=== PATIENT | male | born 1930 | race Caucasian/White ===

== ENCOUNTER → 2017-02-16 | Outpatient (CLI) | payer OTHER | LOC: BHFA 13:00 | PROVIDERS: ATTEND Internal Medicine Cardiovascular Disease | DX: I25.10 Atherosclerotic heart disease of native coronary artery without angina pectoris (principal); E78.5 Hyperlipidemia, unspecified; I10 Essential (primary) hypertension | CPT/HCPCS: 86141-90 ==

== ENCOUNTER → 2017-02-25 | Outpatient (CLI) | payer OTHER | LOC: BHFA 14:00 | PROVIDERS: ATTEND Internal Medicine Cardiovascular Disease | DX: R06.00 Dyspnea, unspecified (principal) ==

== ENCOUNTER 2018-03-20 16:43 | Inpatient (IN) | payer OTHER ==
[2018-03-20] MEDS ORDERED: IPRATROPIUM/ALBUTEROL 3 ML DEYVIAL IH ONE (17:14)
[2018-03-20] MEDS ORDERED: NS 1,000 ML IV ONE (17:14)
--- NOTE | 2018-03-20 17:17 | EDPHY ---
H & P Time Seen by Provider: 03/20/18 17:02 HPI/ROS: CHIEF COMPLAINT: Cough and shortness of breath HISTORY OF PRESENT ILLNESS: Patient is been in [place] for the last 3 weeks visiting [place] and [place] and [place] and other countries. He started getting sick while he was there and he has a long history of asthma. He got a shot of cortisone [place] and some oral antibiotics there, Azithromycin. He presents now with worsening cough with yellow-green sputum which is associated with severe shortness of breath and some her bilateral chest pain only with his cough. Worse with exertion. REVIEW OF SYSTEMS: Eye: no change in vision ENT: no sore throat Cardiac: No syncope Pulmonary: HPI Abdomen: no vomiting, diarrhea, abdominal pain Musculoskeletal: No leg swelling Skin: no rash Neuro: no headache Constitutional: no fever : no urinary symptoms A comprehensive 10 point review of systems is otherwise negative aside from elements mentioned in the history of present illness. PAST MEDICAL HISTORY: Includes hypertension, asthma treated at [facility]. Pacemaker. Social history: Nonsmoker, travel as above. He got sick while he was traveling. General Appearance: Alert and conversant, cooperative. Eyes: No scleral icterus. ENT, Mouth: Normal mucous membranes. Respiratory: Decreased breath sounds bilaterally. Patient is a little bit tachypneic. Cardiovascular: Regular rate and rhythm. Gastrointestinal: Abdomen is soft and non tender. Neurological: Alert, face symmetric, normal motor and sensory in extremities. Skin: Warm and dry, no rashes. Musculoskeletal: No calf tenderness. Psychiatric: Not agitated. Emergency Department course/MDM: Patient's temperature is 38.2 degrees taken by myself and his heart rate is 98. He has SIRS criteria and is hypoxic with saturation of 90%. Plan for lactate, blood cultures, respiratory panel and chest x-ray, IV antibiotics and admission for pneumonia. Levaquin 750 as he has recently been on a macrolide. IV normal saline hydration. Does not have evidence of severe sepsis or septic shock, although he does have SIRS criteria. Smoking Status: Former smoker Constitutional: Initial Vital Signs Temperature (C) 37.8 C 03/20/18 16:52 Heart Rate 98 03/20/18 16:52 Respiratory Rate 20 03/20/18 16:52 Blood Pressure 129/116 H 03/20/18 16:52 O2 Sat (%) 90 L 03/20/18 16:52 O2 Delivery Mode Room Air Allergies/Adverse Reactions: Sulfa (Sulfonamide Antibiotics) Allergy (Intermediate, Verified 03/20/18 16:51) LOW GRADE FEVER Home Medications: Medication Instructions Recorded Ascorbic Acid [Vitamin C 500 mg 1,000 mg PO Q48H 11/27/13 (*)] Beta-Carotene(A) W-C & E/Min 1 tab PO Q48H 11/27/13 [Ocuvite] Fluticasone/Salmeter 500/50Mcg 1 puffs IH BID #0 11/27/13 [Advair 500/50 (*)] Glucosamine Sulfate [Glucosamine 1,000 mg PO DAILY #0 12/15/14 Sulfate 500 MG (*)] Atorvastatin Calcium [Lipitor 20 20 mg PO DAILY #30 tab 12/17/14 mg (*)] Lisinopril [Zestril 5 mg (*)] 5 mg PO DAILY #30 tab 12/17/14 Aspirin EC [Aspirin EC 81 mg (*)] 81 mg PO DAILY 01/07/15 Ibuprofen [Motrin (*)] 400 mg PO Q6 PRN #0 tab 01/11/15 Albuterol [Proventil Inhaler HFA 2 puffs IH Q6HRS PRN 03/20/18 (*)] Medical Decision Making - Diagnostics Imaging Results: Imaging Impressions Chest X-Ray 03/20/18 17:14 Impression: 1. Bibasilar airspace consolidation, more likely pneumonia than atelectasis. 2. Nodular airspace consolidation versus developing discrete left lung nodule. Recommend follow-up chest radiograph in 4 to 6 weeks to assure resolution. Chest x-ray personally interpreted shows bilateral pulmonary infiltrates Imaging: I viewed and interpreted images myself Differential Diagnosis: Differential diagnosis considered for shortness of breath including but not limited to pulmonary infectious process, COPD, asthma, pulmonary embolus and congestive heart failure. Consult/Admit Bed Type: [place] [id number] - Data Points Laboratory Results: Laboratory Results 03/20/18 17:26 03/20/18 17:26 03/20/18 03/20/18 03/20/18 17:26 17:26 17:26 WBC 12.20 10^3/uL H 10^3/uL (3.80-9.50) RBC 3.90 10^6/uL L 10^6/uL (4.40-6.38) Hgb 12.2 g/dL L g/dL (13.7-17.5) Hct 36.9 % L % (40.0-51.0) MCV 94.6 fL fL (81.5-99.8) MCH 31.3 pg pg (27.9-34.1) MCHC 33.1 g/dL g/dL (32.4-36.7) RDW 15.0 % % (11.5-15.2) Plt Count 239 10^3/uL 10^3/uL (150-400) MPV 9.6 fL fL (8.7-11.7) Neut % (Auto) Not Reported Lymph % (Auto) Not Reported [place] % (Auto) Not Reported Eos % (Auto) Not Reported Baso % (Auto) Not Reported Nucleat RBC Rel Count Not Reported Absolute Neuts (auto) Not Reported Absolute Lymphs (auto) Not Reported Absolute Monos (auto) Not Reported Absolute Eos (auto) Not Reported Absolute Basos (auto) Not Reported Absolute Nucleated RBC Not Reported Immature Gran % Not Reported Seg Neutrophils % 63.3 % % Band Neutrophils % 4.1 % % Lymphocytes % 13.3 % % Monocytes % 8.1 % % Eosinophils % 0 % % Basophils % 0 % % Metamyelocytes % 4.1 % % Myelocytes % 6.1 % % Promyelocytes % 1.0 % % Blast Cells % 0 % % Immature Gran # Not Reported Absolute Seg Neuts 7.72 10^/uL H 10^/uL (1.70-6.50) Absolute Band Neuts 0.50 10^3/uL 10^3/uL (0.00-0.70) Absolute Lymphocytes 1.62 10^3/uL 10^3/uL (1.00-3.00) Absolute Monocytes 0.99 10^3/uL H 10^3/uL (0.30-0.80) Absolute Eosinophils 0.00 10^3/uL L 10^3/uL (0.03-0.40) Absolute Basophils 0.00 10^3/uL L 10^3/uL (0.02-0.10) Absolute Metamyelocyte 0.50 10^3/mL H 10^3/mL (0.00-0.00) Absolute Myelocytes 0.74 10^3/mL H 10^3/mL (0.00-0.00) Absolute Promyelocytes 0.12 10^3/uL H 10^3/uL (0.00-0.00) Absolute Plasma Cells 0.00 10^3/uL 10^3/uL (0.00-0.00) Absolute Blast Cells 0.00 10^3/uL 10^3/uL (0.00-0.00) Plasma Cells % 0 % % Platelet Estimate ADEQUATE (ADEQ) Giant Platelets PRESENT H Acanthocytes (Spur) 1+ H Keratocytes 1+ H Smear Review By Pending PT 15.2 SEC H SEC (12.0-15.0) INR 1.18 H (0.83-1.16) APTT 32.0 SEC SEC (23.0-38.0) VBG Lactic Acid Sodium 136 mEq/L mEq/L (135-145) Potassium 4.3 mEq/L mEq/L (3.3-5.0) Chloride 102 mEq/L mEq/L (97-110) Carbon Dioxide 22 mEq/l mEq/l (22-31) Anion Gap 12 mEq/L mEq/L (8-16) BUN 24 mg/dL H mg/dL (7-23) Creatinine 1.1 mg/dL mg/dL (0.7-1.3) Estimated GFR > 60 Glucose 98 mg/dL mg/dL (70-100) Calcium 8.4 mg/dL L mg/dL (8.5-10.4) Total Bilirubin 0.6 mg/dL mg/dL (0.1-1.4) 03/20/18 17:26 WBC RBC Hgb Hct MCV MCH MCHC RDW Plt Count MPV Neut % (Auto) Lymph % (Auto) [place] % (Auto) Eos % (Auto) Baso % (Auto) Nucleat RBC Rel Count Absolute Neuts (auto) Absolute Lymphs (auto) Absolute Monos (auto) Absolute Eos (auto) Absolute Basos (auto) Absolute Nucleated RBC Immature Gran % Seg Neutrophils % Band Neutrophils % Lymphocytes % Monocytes % Eosinophils % Basophils % Metamyelocytes % Myelocytes % Promyelocytes % Blast Cells % Immature Gran # Absolute Seg Neuts Absolute Band Neuts Absolute Lymphocytes Absolute Monocytes Absolute Eosinophils Absolute Basophils Absolute Metamyelocyte Absolute Myelocytes Absolute Promyelocytes Absolute Plasma Cells Absolute Blast Cells Plasma Cells % Platelet Estimate Giant Platelets Acanthocytes (Spur) Keratocytes Smear Review By PT INR APTT VBG Lactic Acid 0.8 mmol/L mmol/L (0.7-2.1) Sodium Potassium Chloride Carbon Dioxide Anion Gap BUN Creatinine Estimated GFR Glucose Calcium Total Bilirubin Microbiology Results: MICROBIOLOGY 03/20/18 17:45 Nasal, Sinus - Swab Respiratory Panel (PCR) - Final Human Rhinovirus/Enterovirus Medications Given: Discontinued Medications Albuterol/Ipratropium (Duoneb) 3 ml IH EDNOW ONE Stop: 03/20/18 17:15 Last Admin: 03/20/18 17:43 Dose: 3 ml Sodium Chloride (Ns) 1,000 mls @ 0 mls/hr IV ONCE ONE; Wide Open PRN Reason: Protocol Stop: 03/20/18 17:15 Last Admin: 03/20/18 17:36 Dose: 1,000 mls Levofloxacin/Dextrose (Levaquin 750 Mg (Premix)) 150 mls @ 100 mls/hr IV EDNOW ONE PRN Reason: Protocol Stop: 03/20/18 19:22 Last Admin: 03/20/18 18:07 Dose: 150 mls Sodium Chloride (Ns) 2,400 mls @ 4,800 mls/hr 30 ml/kg infuse over 30 min ( 2400 ml) IV EDNOW ONE PRN Reason: Protocol Stop: 03/20/18 18:22 Last Admin: 03/20/18 18:04 Dose: 1,400 mls Departure - Departure Disposition: [facility] Inpatient Acute Clinical Impression: Pneumonia Condition: Good
[2018-03-20 17:35] LABS: PLATELET COUNT 239 10^3/uL (150-400)
[2018-03-20] MEDS ORDERED: IPRATROPIUM/ALBUTEROL 3 ML DEYVIAL ONE (17:37)
[2018-03-20 17:43] LABS: INR 1.18 (0.83-1.16); PROTIME(PATIENT) 15.2 SEC (12.0-15.0)
[2018-03-20] MEDS ORDERED: NS 2,400 ML IV ONE (17:53)
[2018-03-20] MEDS ORDERED: ACETAMINOPHEN 325 MG TAB PO PRN (21:05)
[2018-03-20] MEDS ORDERED: BENZONATATE 100 MG CAP PO PRN (21:05)
[2018-03-20] MEDS ORDERED: ALBUTEROL 3 ML DEYVIAL IH PRN (21:05)
[2018-03-20] MEDS ORDERED: ONDANSETRON DISINTEGRATING 4 MG TAB PO PRN (21:05)
[2018-03-20] MEDS ORDERED: ONDANSETRON 4 MG/2 ML VIAL IVP PRN (21:05)
[2018-03-20] MEDS ORDERED: GUAIFENESIN/DM 10 ML UDCUP PO PRN (21:05)
--- NOTE | 2018-03-20 21:18 | PDGENHP ---
History and Physical - Chief Complaint cough, SOB - History of Present Illness 87 yo male with h/o hypertension and asthma presents to ED with cough with fevers and chills. Symptoms started 10 days ago with upper respiratory symptoms , which settled in his chest. He was travelling in [place] and saw a doctor there, who thought he did not have pneumonia, but treated the cough with antibiotics, which he completed. However, he has continued to cough, but no more fevers. He is a non-smoker. +sick contacts, is also ill with similar symptoms. In the ED, he was given IV Levaquin. Blood cultures were drawn and he is admitted to the hospital for further management. History Information - Allergies/Home Medication List Allergies/Adverse Reactions: Sulfa (Sulfonamide Antibiotics) Allergy (Intermediate, Verified 03/20/18 16:51) LOW GRADE FEVER Home Medications: Ascorbic Acid [Vitamin C 500 mg (*)] 1,000 mg PO Q48H 11/27/13 [Last Taken 12/15 09:00] Beta-Carotene(A) W-C & E/Min [Ocuvite] 1 tab PO Q48H 11/27/13 [Last Taken ] Fluticasone/Salmeter 500/50Mcg [Advair 500/50 (*)] 1 puffs IH BID #0 11/27/13 [ Last Taken 03/20/18] Glucosamine Sulfate [Glucosamine Sulfate 500 MG (*)] 1,000 mg PO DAILY #0 [Last Taken 01/06/15] Aspirin EC [Aspirin EC 81 mg (*)] 81 mg PO DAILY 01/07/15 [Last Taken 03/20/18] Albuterol [Proventil Inhaler HFA (*)] 2 puffs IH Q6HRS PRN 03/20/18 [Last Taken 03/20/18] I have personally reviewed and updated: family history, medical history, social history, surgical history - Past Medical History asthma, hypertension Additional medical history: pacemaker placed for heart block - Surgical History Reports: no pertinent surgical hx - Family History Positive for: non-pertinent - Social History Smoking Status: Former smoker Alcohol Use: Other (a drink daily) Drug Use: None Additional social history: . Just returned from traveling in [place] Review of Systems Review of Systems: ROS: 10pt was reviewed & negative except for what was stated in HPI & below Physical Exam Physical Exam: Temp Pulse Resp BP Pulse Ox 37.4 C 88 16 167/97 H 93 03/20/18 20:37 03/20/18 20:37 03/20/18 20:37 03/20/18 20:37 03/20/18 20:37 Constitutional: no apparent distress Eyes: PERRL Ears, Nose, Mouth, Throat: moist mucous membranes Cardiovascular: regular rate and rhythym Respiratory: no respiratory distress, clear to auscultation Gastrointestinal: normoactive bowel sounds, soft, non-tender abdomen Skin: warm Musculoskeletal: full muscle strength Neurologic: AAOx3 Psychiatric: interacting appropriately Lab Data & Imaging Review 03/20/18 17:26 03/20/18 17:26 WBC 12.20 10^3/uL (3.80-9.50) H 03/20/18 17:26 RBC 3.90 10^6/uL (4.40-6.38) L 03/20/18 17:26 Hgb 12.2 g/dL (13.7-17.5) L 03/20/18 17:26 Hct 36.9 % (40.0-51.0) L 03/20/18 17:26 MCV 94.6 fL (81.5-99.8) 03/20/18 17:26 MCH 31.3 pg (27.9-34.1) 03/20/18 17:26 MCHC 33.1 g/dL (32.4-36.7) 03/20/18 17:26 RDW 15.0 % (11.5-15.2) 03/20/18 17:26 Plt Count 239 10^3/uL (150-400) 03/20/18 17:26 MPV 9.6 fL (8.7-11.7) 03/20/18 17:26 Neut % (Auto) Not Reported 03/20/18 17:26 Lymph % (Auto) Not Reported 03/20/18 17:26 [place] % (Auto) Not Reported 03/20/18 17:26 Eos % (Auto) Not Reported 03/20/18 17:26 Baso % (Auto) Not Reported 03/20/18 17:26 Nucleat RBC Rel Count Not Reported 03/20/18 17:26 Absolute Neuts (auto) Not Reported 03/20/18 17:26 Absolute Lymphs (auto) Not Reported 03/20/18 17:26 Absolute Monos (auto) Not Reported 03/20/18 17:26 Absolute Eos (auto) Not Reported 03/20/18 17:26 Absolute Basos (auto) Not Reported 03/20/18 17:26 Absolute Nucleated RBC Not Reported 03/20/18 17:26 Immature Gran % Not Reported 03/20/18 17:26 Seg Neutrophils % 63.3 % 03/20/18 17:26 Band Neutrophils % 4.1 % 03/20/18 17:26 Lymphocytes % 13.3 % 03/20/18 17:26 Monocytes % 8.1 % 03/20/18 17:26 Eosinophils % 0 % 03/20/18 17: Basophils % 0 % 03/20/18 17:26 Metamyelocytes % 4.1 % 03/20/18 17: Myelocytes % 6.1 % 03/20/18 17: Promyelocytes % 1.0 % 03/20/18 17: Blast Cells % 0 % 03/20/18 17:26 Immature Gran # Not Reported 03/20/18 17:26 Absolute Seg Neuts 7.72 10^/uL (1.70-6.50) H 03/20/18 17:26 Absolute Band Neuts 0.50 10^3/uL (0.00-0.70) 03/20/18 17:26 Absolute Lymphocytes 1.62 10^3/uL (1.00-3.00) 03/20/18 17: Absolute Monocytes 0.99 10^3/uL (0.30-0.80) H 03/20/18 17:26 Absolute Eosinophils 0.00 10^3/uL (0.03-0.40) L 03/20/18 17:26 Absolute Basophils 0.00 10^3/uL (0.02-0.10) L 03/20/18 17:26 Absolute Metamyelocyte 0.50 10^3/mL (0.00-0.00) H 03/20/18 17:26 Absolute Myelocytes 0.74 10^3/mL (0.00-0.00) H 03/20/18 17:26 Absolute Promyelocytes 0.12 10^3/uL (0.00-0.00) H 03/20/18 17:26 Absolute Plasma Cells 0.00 10^3/uL (0.00-0.00) 03/20/18 17:26 Absolute Blast Cells 0.00 10^3/uL (0.00-0.00) 03/20/18 17:26 Plasma Cells % 0 % 03/20/18 17:26 Platelet Estimate ADEQUATE (ADEQ) 03/20/18 17:26 Giant Platelets PRESENT H 03/20/18 17:26 Acanthocytes (Spur) 1+ H 03/20/18 17:26 Keratocytes 1+ H 03/20/18 17:26 PT 15.2 SEC (12.0-15.0) H 03/20/18 17:26 INR 1.18 (0.83-1.16) H 03/20/18 17:26 APTT 32.0 SEC (23.0-38.0) 03/20/18 17:26 VBG Lactic Acid 0.8 mmol/L (0.7-2.1) 03/20/18 17:26 Sodium 136 mEq/L (135-145) 03/20/18 17:26 Potassium 4.3 mEq/L (3.3-5.0) 03/20/18 17:26 Chloride 102 mEq/L (97-110) 03/20/18 17:26 Carbon Dioxide 22 mEq/l (22-31) 03/20/18 17:26 Anion Gap 12 mEq/L (8-16) 03/20/18 17:26 BUN 24 mg/dL (7-23) H 03/20/18 17:26 Creatinine 1.1 mg/dL (0.7-1.3) 03/20/18 17:26 Estimated GFR > 60 03/20/18 17:26 Glucose 98 mg/dL (70-100) 03/20/18 17:26 Calcium 8.4 mg/dL (8.5-10.4) L 03/20/18 17:26 Total Bilirubin 0.6 mg/dL (0.1-1.4) 03/20/18 17:26 Visualized and Interpreted Chest x-ray results: Yes Chest X-Ray results: infiltrate Assessment & Plan Assessment: Acute hypoxemic respiratory failure - S/P atbx course. Respiratory viral panel positive for rhino/enterovirus. CXR reviewed, could be a viral process. -check PCT, if neg, defer further atbx given previous atbx course -supportive care with nebs, anti-tussives, guaifenesin -will need f/u CXR in 4-6 weeks as unclear if he is developing a nodule Asthma - no wheezing or e/o exacerbation -cont home advair, prn albuterol nebs -no indication for steroids and he recently completed systemic steroid course Leukocytosis - could be related to recent steroids, follow Hypertension - sub-optimal control -cont Lisinopril, plus prn hydralazine H/O pacemaker Full code Dispo - inpt, anticipate >48 hrs hospitalization for ongoing URI symptoms. PT/ OT evals requested.
[2018-03-20] MEDS ORDERED: BISACODYL 10 MG SUPP PR PRN (21:22)
[2018-03-20] MEDS ORDERED: POLYETHYLENE GLYCOL 3350 17 GM PKT PO PRN (21:22)
[2018-03-20] MEDS ORDERED: MAGNESIUM HYDROXIDE 30 ML UDCUP PO PRN (21:22)
[2018-03-20] MEDS ORDERED: LACTULOSE 20 GM/30 ML UDCUP PO PRN (21:22)
[2018-03-20] MEDS: guaiFENesin 600 MG TAB.ER PO SCH (21:35)
[2018-03-20] MEDS: FLUTICASONE/SALMETER 500/50MCG DISKUS IH SCH (21:53)
[2018-03-20] MEDS: hydrALAZINE 25 MG TAB PO PRN (22:49)
[2018-03-21 05:38] LABS: PLATELET COUNT 232 10^3/uL (150-400)
[2018-03-21] MEDS: guaiFENesin 600 MG TAB.ER PO SCH (08:03)
[2018-03-21] MEDS: FLUTICASONE/SALMETER 500/50MCG DISKUS IH SCH (08:04)
[2018-03-21] MEDS: hydrALAZINE 25 MG TAB PO PRN (08:47)
[2018-03-21] MEDS ORDERED: LISINOPRIL 5 MG TAB PO SCH (09:00)
[2018-03-21] MEDS ORDERED: ENOXAPARIN 40 MG/0.4 ML SYR SC SCH (09:00)
[2018-03-21] MEDS ORDERED: SENNOSIDES/DOCUSATE SODIUM TAB PO SCH (09:00)
[2018-03-21] MEDS ORDERED: ASPIRIN EC 81 MG TAB PO SCH (09:00)
[2018-03-21] MEDS ORDERED: ATORVASTATIN CALCIUM 20 MG TAB PO SCH (09:00)
[2018-03-21 09:46] VITALS: BP 153/92
--- NOTE | 2018-03-21 10:11 | GDS ---
[f rep st] DISCHARGE SUMMARY DISCHARGE DIAGNOSES: 1. Pneumonia. 2. Rhinovirus. 3. Possible chest nodule. 4. History of asthma. 5. Hypertension. 6. Leukocytosis. PHYSICAL EXAM: GENERAL: The patient is alert. VITAL SIGNS: Afebrile at 36.3, pulse is 81, respira tory rate 16, blood pressure is 153/92, he is saturating greater than 90% on room air. I have seen and evaluated the patient on the day of discharge. HOSPITAL COURSE: The patient is an 87-year-old male, who presented to the emergency room with compla ints of cough and chills. He was evaluated and diagnosed with: 1. Rhinovirus. During this hospitalization, he received supportive care, and was placed on precauti ons. 2. Acute hypoxemic respiratory failure. This was multifactorial, and has resolved. 3. Presumed pneumonia. The patient's condition has improved after receiving antibiotics. He will c ontinue Levaquin for a total of 5 days, to assure that he has no underlying residual pneumonia. 4. Asthma. His home medications have been continued. 5. Leukocytosis. This is a mild elevation, and appears to be stable. 6. Hypertension. The patient has been educated that he has suboptimal control. His lisinopril has been continued. He has been recommended to follow up with his primary care provider for better blood pressure management. DISPOSITION: The patient will be discharged home independently. Followup will be with his primary c are physician. He needs a chest x-ray in 4-6 weeks, to review potential development of a nodule. He also needs followup for his hypertension. He is in agreement with this plan. DISCHARGE MEDICATIONS: Please refer to EMR form. I have provided the patient a prescription for Lev aquin, as well as Tessalon Perles. PENDING STUDIES: Include blood cultures. I spent greater than 35 minutes in the care, coordination, and management of this patient's dispositi on. /[id number]/MODL
--- NOTE | 2018-03-23 09:23 | PDMN ---
Medical Necessity Medical necessity: Pt meets IP criteria per MD; est los >2 mn for eval/tx of acute hypoxemic respiratory failure & URI symptoms r/t rhinovirus & pneumonia; admit for further monitoring, supportive care, IV abx, IVFs & therapies; comorbid advanced age, asthma, HTN & pacer; per H&P & order 03/20/18
== END 2018-03-21 10:40 | disposition home or self-care (01) | DRG 193 ==
LOC: F3E 20:33
PROVIDERS: ADMIT Hospitalist; ATTEND Internal Medicine
DX: J18.0 Bronchopneumonia, unspecified organism (principal); J96.01 Acute respiratory failure with hypoxia; B34.8 Other viral infections of unspecified site; R91.8 Other nonspecific abnormal finding of lung field; J45.909 Unspecified asthma, uncomplicated; I10 Essential (primary) hypertension
CPT/HCPCS: 96365; 97161-GP; G8978-GP-CI; G8979-GP-CI; G8980-GP-CI; J1650; J1956

== ENCOUNTER → 2018-03-28 | Outpatient (CLI) | payer OTHER | LOC: BHFA 12:45 | PROVIDERS: ATTEND Internal Medicine Cardiovascular Disease | DX: I10 Essential (primary) hypertension (principal); Z95.0 Presence of cardiac pacemaker ==